=== PATIENT | female | born 1995 ===

== ENCOUNTER 2022-02-24 17:31 | Emergency (ER) | payer SELFPAY ==
[2022-02-24] MEDS ORDERED: Acetaminophen 500 MG TAB ONE (17:41)
[2022-02-24] MEDS ORDERED: Ketorolac Tromethamine 30 MG/ML VIAL ONE (18:32)
== END 2022-02-24 18:43 | disposition home or self-care (01) ==
LOC: ERS 17:31
DX: K02.9 Dental caries, unspecified (principal)
CPT/HCPCS: 96372; 99282; J1885